=== PATIENT | female | born 1950 ===

== ENCOUNTER 2016-04-23 08:53 | Outpatient (CLI) | payer MEDICARE ==
--- NOTE | 2016-04-23 10:45 | XRay Report ---
LUMBAR SPINE 4 VIEWS: HISTORY: Back pain. FINDINGS: Normal height of vertebral bodies. Decrease in height of L4-5 and L5-S1 interspace. Sclerotic articular surfaces with peripheral osteophyte suggestive of severe degenerative changes. No fracture. No soft tissue calcification. IMPRESSION: Severe degenerative changes lower lumbar spine.
--- NOTE | 2016-04-23 10:45 | XRay Report ---
LEFT HIP 2 VIEWS: HISTORY: Hip pain. FINDINGS: There are [id number] arthritic changes noted at the hip joint predominantly at the anteroinferior aspect. There is also noted ossification adjacent to the greater trochanter. No dislocation. No fracture. IMPRESSION: Severe arthritic changes left hip. Ossification adjacent to the greater trochanter may be related to old injury.
--- NOTE | 2016-04-23 14:38 | Mammography Report ---
BILATERAL DIGITAL SCREENING MAMMOGRAM with CAD: 04/23/16 08:53:00 CLINICAL: Routine screening. COMPARISON:11/18/14 FINDINGS: The breasts are almost entirely fatty. No mass, architectural distortion or suspicious calcifications. IMPRESSION: No mammographic evidence of malignancy. BI-RADS CATEGORY: 1 - - Negative RECOMMENDATION: Routine mammographic screening in one year. COMMENT: Patient follow-up letters are generated by our [employer] application.
== END 2016-04-23 08:54 | disposition home or self-care (01) ==
LOC: SPVWC 08:53
DX: Z12.31 Encounter for screening mammogram for malignant neoplasm of breast (principal); M25.78 Osteophyte, vertebrae; M47.896 Other spondylosis, lumbar region
CPT/HCPCS: 72110; 73502; G0202; 77067